=== PATIENT | female | born 1990 | race Asian ===

== ENCOUNTER 2025-05-16 23:45 | Emergency (ER) | payer OTHER, SELFPAY ==
[2025-05-16 23:52] VITALS: BP 127/88
--- NOTE | 2025-05-17 00:40 | ED.GENMED ---
History of Present Illness
General
Chief Complaint: Crisis Evaluation
Source: patient
Exam Limitations: none
Time Seen by Provider: 05/16/25 23:47
Nursing documentation reviewed up to this point in time: agreed with
History of Present Illness
History of Present Illness:
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
a psychiatric hospital previously she tells me though she does appear to be on Abilify, patient does tell me she has not been sleeping very well lately, and needed a sleeping pill few nights ago
Past History
Past History
ED Past Medical History: Asthma, Psychiatric and Other (Eczema)
ED Past Surgical History: None
Social History
Tobacco: Non-smoker
Alcohol: Occasional
Drug: None
Personal: Single
Living: with family
Employment: Not employed
Family History
Family History: Other (Noncontributory)
Phy Exam
Physical Exam
Physical Exam:
Physical Exam
General: no apparent distress, not acutely ill
Neck: No jaundice
Heart: s1/s2 regular rate and rhythm, no murmur. equal radial pulses.
Lungs: no acute respiratory distress. clear bilaterally
Neuro: alert and oriented. no focal neurological deficits
Skin: no rash
Psychiatric: Cooperative, speech is a bit pressured and tangential not suicidal or homicidal
Extremities: no edema.
Course
Orders/Labs/Results
Orders:
Orders
05/17/25 00:01
Crisis Consult Urgent
Reason for Consult: 302
05/17/25 00:23
ED Special Safety Observation ONCE
Observation level: One to Two
05/17/25 01:02
Diazepam [Valium] 5 mg PO NOW STA
Vital Signs
Initial and Last Documented VS:
Initial Vital Signs
Temp Pulse Resp BP Pulse Ox
98.6 F 76 18 127/88 100
05/16/25 23:52 05/16/25 23:52 05/16/25 23:52 05/16/25 23:52 05/16/25 23:52
Last Documented Vital Signs
Temp Pulse Resp BP Pulse Ox
98.6 F 76 18 127/88 100
05/16/25 23:52 05/17/25 00:59 05/17/25 00:59 05/17/25 00:59 05/17/25 00:59
MDM/Problems Addressed
Differential Diagnosis Includes:
Anxiety depression suicidal ideation
MDM/Problems Addressed:
Suicidal ideation anxiety depression
Chronic conditions affecting care: Psychiatric illness
Acute Exacerbation and/or Progression of Chronic Illness: Psychiatric illness
*Pulse Oximetry
SaO2: 100
Oxygen Mode of Delivery: Room air
Patient hypoxic: no
*Critical Care Note
Total Time (30-74mins, 75-104mins- exclusive of procedures): Not Applicable
Update Note
Update Note:
2 AM reviewed with crisis 302 upheld by delegate going to telepsych
ED Attending Note
-
Portions of this chart may have been created with voice recognition software.� Occasional wrong word or��sound alike� substitutions may have occurred due to the inherent limitations of voice recognition software.
Discharge Plan
Departure
Patient Disposition: Psych Facility
Date of Disposition: 05/17/25
Time of Disposition: 01:57
Condition: Good
Discharge Problem:
Suicidal ideation
Prescriptions:
No Action
aripiprazole [Abilify] 10 MG tablet
10 mg PO DAILY
benzonatate 100 MG capsule
100 mg PO TIDPRN PRN (Reason: cough) Qty: 14 0RF
albuterol sulfate [Albuterol Sulfate HFA] 18 GM HFA aerosol inhaler
18 gm inhalation Q4 Qty: 1 0RF
hydrocortisone 1 APPLIC cream
1 applic S BID Qty: 1 0RF
crisaborole [Eucrisa] 60 GM ointment
1 gm TP DAILY Qty: 60 0RF
Referrals:
UNKNOWN - PT DOES,NOT KNOW [Family Provider]
Interventions
Interventions:
*Risk Screen - Suicide Last Done: 05/16/25 23:52
*Neglect/Abuse Screening Last Done: 05/16/25 23:52
ED-Psychological Assessment Last Done: 05/17/25 01:50
Discharge Date and Time
Print Language: MALAYSIAN
[2025-05-17 00:59] VITALS: BP 127/88
[2025-05-17] MEDS: VALIUM 5 MG PO ×2 (01:43→04:56)
[2025-05-17 01:44] VITALS: BMI 21.0
[2025-05-17] MEDS: TYLENOL 1000 MG PO (02:41)
== END 2025-05-17 13:31 ==
LOC: EMR 23:45
PROVIDERS: EMERGENCY PHYSICIAN Emergency Medicine
DX: R45.851 Suicidal ideations (principal); J45.909 Unspecified asthma, uncomplicated; F41.8 Other specified anxiety disorders; F84.0 Autistic disorder; Z63.9 Problem related to primary support group, unspecified
CPT/HCPCS: 99283